=== PATIENT | male | born 1990 | race African-American/Black ===

== ENCOUNTER 2019-02-02 08:32 | Emergency (ER) | payer BC ==
[2019-02-02 08:55] VITALS: BP 129/84
[2019-02-02] MEDS ORDERED: CEFTRIAXONE INJ 250 MG VIAL IM ONE (09:07)
[2019-02-02] MEDS ORDERED: AZITHROMYCIN 250 MG TABLET PO ONE (09:07)
--- NOTE | 2019-02-02 09:23 | ER Document Report ---
HPI - HPI Time Seen by Provider: 02/02/19 09:09 Pain Level: 1 Notes: Patient is a 28-year-old male with no significant past medical history who presents complaining of penile discharge that he noticed earlier this morning with burning upon urination. Patient states that 1 of his partners called and told him that she had chlamydia. Patient states that he is otherwise feeling well and is able to eat and drink without difficulties. He is having normal bowel movements. He has not noticed any rash or other symptoms. Denies drug allergies. Denies any headache, fever, neck pain, URI, sore throat, chest pain, palpitations, syncope, cough, shortness of breath, wheeze, dyspnea, abdominal pain, nausea/vomiting/diarrhea, urinary retention, hematuria, or rash. - ROS Systems Reviewed and Negative: Yes All other systems reviewed and negative Past Medical History - Social History Smoking Status: Current Some Day Smoker Frequency of alcohol use: None Drug Abuse: None Family History: Reviewed & Not Pertinent Patient has suicidal ideation: No Patient has homicidal ideation: No Renal/ Medical History: Denies: Hx Peritoneal Dialysis Vertical Provider Document - CONSTITUTIONAL Agree With Documented VS: Yes Notes: PHYSICAL EXAMINATION: GENERAL: Well-appearing, well-nourished and in no acute distress. HEAD: Atraumatic, normocephalic. EYES: Pupils equal round and reactive to light, extraocular movements intact, sclera anicteric, conjunctiva are normal. ENT: Nares patent and without discharge. oropharynx clear without exudates. No tonsilar hypertrophy or erythema. Moist mucous membranes. NECK: Normal range of motion, supple without lymphadenopathy LUNGS: Breath sounds clear to auscultation bilaterally and equal. No wheezes rales or rhonchi. HEART: Regular rate and rhythm without murmurs, rubs, gallops. ABDOMEN: Soft, nontender, nondistended abdomen. No guarding, no rebound. Normal bowel sounds present. No CVA tenderness bilaterally. : + circum. + cloudy urethral discharge noted. No erythema, rash, lesion, ulceration noted. Nontender to palpation throughout including the testicles and scrotum. No obvious inguinal adenopathy or hernia. Musculoskeletal: FROM to passive/active. Strength 5+/5. Extremities: No cyanosis, clubbing, or edema b/l. Peripheral pulses 2+. Capillary refill less than 3 seconds. NEUROLOGICAL: Normal speech, normal gait. PSYCH: Normal mood, normal affect. SKIN: Warm, Dry, normal turgor, no rashes or lesions noted. - INFECTION CONTROL TRAVEL OUTSIDE OF THE [place] IN LAST 30 DAYS: No Course - Re-evaluation Re-evalutation: 02/02/19 09:20 Patient is an afebrile, well-hydrated, 28-year-old male who presents with dysuria and exposure to STD. Vitals are acceptable without significant tachycardia, tachypnea, or hypoxia. PE is otherwise unremarkable. Patient is nontoxic-appearing and is tolerating p.o. without difficulty. See Urinalysis. Chlamydia and gonorrhea tests are pending. Patient did receive Zithromax and Rocephin today. No further work-up warranted. Low suspicion for any gangrene/necrotizing fasciitis, incarcerated hernia, sepsis, testicular torsion, or other systemic emergent condition at this time. Patient is aware that his condition can change from initial presentation and he needs to monitor symptoms closely and seek medical attention if any acute changes. Conservative measures otherwise for symptoms. Recheck with PCM in 2-3 days. Follow-up with the health department for further evaluation and testing. Return to the ED with any worsening/concerning symptoms otherwise as reviewed in discharge. Patient is in agreement. - Vital Signs Vital signs: Temp Pulse Resp BP Pulse Ox 97.7 F 69 17 129/84 H 98 02/02/19 08:53 02/02/19 08:53 02/02/19 08:53 02/02/19 08:53 02/02/19 08:53 Discharge - Discharge Clinical Impression: STD exposure, Dysuria Condition: Stable Disposition: HOME, SELF-CARE Additional Instructions: Maintain fluid intake Proper hygienic technique Keep the skin clean Safe sexual practices with condoms everytime Tylenol/ibuprofen as needed Check in with the health department in 2 to 3 days Your chlamydia/gonorrhea tests are pending and you will be notified if positive results; you may call in 1 day for the results as well F/u with your PCM in 3-5 days for a recheck Return to the ED with any development of YOUNG/fever, trouble with vision, eye redness, worsening pain, urethral discharge, urinary retention, blood in the urine, flank pain, abdominal pain, n/v, Chest Pain, shortness of breath, joint pains, trouble breathing, or any other worsening/concerning symptoms as needed otherwise. Forms: Elevated Blood Pressure, Smoking Cessation Education Referrals: HEALTH DEPT,[facility] [NO LOCAL MD] - 02/04/19
[2019-02-02 09:27] LABS: APPEARANCE,URINE SLIGHTLY-CLOUDY; BILIRUBIN,URINE NEGATIVE (NEGATIVE); COLOR,URINE YELLOW; GLUCOSE, URINE NEGATIVE (NEGATIVE); KETONES,URINE TRACE mg/dL (NEGATIVE); LEUKOCYTE ESTERASE,URINE LARGE (NEGATIVE); NITRITE,URINE NEGATIVE (NEGATIVE); PROTEIN,URINE NEGATIVE (NEGATIVE); URINE SPECIFIC GRAVITY 1.026; UROBILINOGEN,URINE NEGATIVE mg/dL (<2.0)
[2019-02-02 10:25] LABS: CHLAM PCR NOT DETECTED (NOT DETECT)
== END 2019-02-02 09:38 | disposition home or self-care (01) ==
LOC: ER 08:32
DX: R30.0 Dysuria (principal); R36.9 Urethral discharge, unspecified; Z20.2 Contact with and (suspected) exposure to infections with a predominantly sexual mode of transmission; F17.200 Nicotine dependence, unspecified, uncomplicated
CPT/HCPCS: 99283; 96372; 81001; 87491; 87591; J0696

== ENCOUNTER 2019-03-08 07:16 | Emergency (ER) | payer BC ==
[2019-03-08 07:53] VITALS: BP 134/94
== END 2019-03-08 08:40 | disposition left against medical advice (07) ==
LOC: ER 07:16
DX: Z53.21 Procedure and treatment not carried out due to patient leaving prior to being seen by health care provider (principal)